=== PATIENT | male | born 1995 | race Caucasian/White ===

== ENCOUNTER 2024-08-24 19:59 | Emergency (ER) | payer MEDICAID, SELFPAY ==
[~2024-08-24] VITALS: Ht 180.3 cm; Wt 70.5 kg
[2024-08-24] MEDS ORDERED: ISOVUE-370 76% 100 ML VIAL As Ordered ONE (20:07)
[2024-08-24] MEDS ORDERED: CYCL-707 PO (22:22)
[2024-08-24 22:51] VITALS: BP 137/85; TEMP 96.6; O2SAT 100
[2024-08-24] MEDS: ACETAMINOPHEN 500 MG TAB PO ONE (23:03)
[2024-08-24] MEDS: NEOSPORIN OINT 0.9 GM PKT TOP ONE (23:03)
== END 2024-08-24 23:12 | disposition home or self-care (01) ==
LOC: EDBD 19:59 → M ED 19:59
DX: S13.4XXA Sprain of ligaments of cervical spine, initial encounter (principal); S10.91XA Abrasion of unspecified part of neck, initial encounter; T71.194A Asphyxiation due to mechanical threat to breathing due to other causes, undetermined, initial encounter; Y04.8XXA Assault by other bodily force, initial encounter; Y92.410 Unspecified street and highway as the place of occurrence of the external cause; Y93.89 Activity, other specified; Y99.8 Other external cause status; F17.200 Nicotine dependence, unspecified, uncomplicated; Z79.899 Other long term (current) drug therapy
CPT/HCPCS: 70450; 70498; 99284; Q9967